=== PATIENT | female | born 1975 | race Caucasian/White ===

== ENCOUNTER 2016-06-22 21:07 | Emergency (ER) | payer SELFPAY ==
[2016-06-22 21:13] VITALS: TEMP 98.5; BMI 27.7
[2016-06-22] MEDS ORDERED: ATENOLOL 50 MG TAB PO ONE (22:10)
--- NOTE | 2016-06-22 22:13 | EDPRACDOC ---
- General Information Chief Complaint: Blood Pressure (Problems) Stated Complaint: ELEVATED BP BLURRED VISION HEART PALP Time Seen by Provider: 06/22/16 22:11 Information Source: Patient Mode Of Arrival: Car Home Medications: Home Medications Atenolol [Tenormin] 50 mg PO BID 06/30/15 CloNIDine (Antihypertensive) [Catapres] 0.1 mg PO DAILY 06/30/15 Atenolol [Tenormin] 50 mg PO BID #60 tablet 02/03/16 CloNIDine (Antihypertensive) [Catapres] 0.1 mg PO DAILY #30 tab 02/03/16 Magnesium [Magnesium Oxide] 200 mg PO DAILY #30 tablet 02/03/16 POTASSIUM CHLORIDE Tablet [K-DUR 20 mEq Tablet*] 20 meq PO DAILY #10 tab Atenolol [Tenormin] 50 mg PO BID(ANIRUDH) #60 tablet 06/22/16 CloNIDine (Antihypertensive) [Catapres] 0.1 mg PO BID PRN #30 tab 06/22/16 Allergies/Adverse Reactions: Allergies Allergy/AdvReac Type Severity Reaction Status Date / Time Iodinated Contrast Media - Allergy Hives* Verified 02/03/16 14:18 IV Dye Penicillins Allergy Hives* Verified 02/03/16 14:18 - History of Present 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 She owes her PCP money and can not go back to that clinic until she pays her bill. She plans to go back when she gets her tax returns. today has PATEL and can tell that her BP is high. She is here requesting me refill. no CP, SOB, weakness, numbness, change in vision or speech. No change in UOP. She had recent blood work with PCP/ declines repeat labs now, reports that is why her medical bill was high. Symptoms: Reports: Mild Circumstances: Reports: Ran Out of Medication Relevent History of: Reports: Hypertension Hypertension Treatment: Reports: Noncompliant Recent Use of: Denies: Cocaine Associated Signs and Symptoms: Denies: Chest Pain, Palpitations, Shortness of Breath, Abdominal Pain, Hematuria ED Past Medical History - History Reviewed Yes Nurses notes reviewed and agree except as marked - Patient Medical History Cardiac History: Reports: Hypertension Respiratory History: Reports: Asthma Psychological History: Reports: Depression, Anxiety Systemic History: Denies: Cancer Additional Past Medical History: EXPOSED TO SEVERAL TOXIC CHEMICAL WHILE LIVING ON BASE AT [facility] Surgical History: Reports: Tonsillectomy/Adnoidectomy. Denies: Hysterectomy - Social Medical History Smoking Status: Current some day smoker EDM Review of Systems - Review of Systems ROS Negative Except as Marked: Yes All systems reviewed and were negative except as marked - Physical Exam Constitutional: Alert (Awake), No apparent distress Oriented to: Time, Person, Place Last recorded Vital Signs: Last Vital Signs Temp 98.5 F 06/22/16 21:10 Pulse 55 L 06/22/16 21:50 Resp 20 06/22/16 21:50 BP 213/101 H 06/22/16 21:50 Pulse Ox 97 06/22/16 21:50 Oxygen Pulse Oxygen Saturation 97 O2 Device Room Air Oxygen Flow Rate Fraction of Inspired Oxygen ( FIO2) - HEENT Head: Normal ( normocephalic) Eye Exam: Normal (PERRL, EOMI, Sclera white) Oropharynx: Normal (Pharynx:Moist without exudate,Gums-no swelling) Neck: Normal (FROM, trachea at midline) - Respiratory/Cardiovascular Respiratory: Normal - CTA (BBS clear to auscultation without adventitious sounds ) Cardiovascular: Normal (RRR without murmur, gallop or rub) - GI Auscultation: Normal (NABS) Palpation: Normal (Soft,No rebound or guarding, non distended) Tenderness: Non tender Cody's Sign: Negative - Musculoskeletal Back: Normal (Non-Tender) Extremities: Normal (Normal tone, Pulses 2+ No cyanosis or edema, FROM). negative: Calf Tenderness - Integumentary Skin: Normal, Warm, Dry Lymphatics: Normal (no adenopathy) - Neurologic Memory Impaired: Normal Motor Function: Normal (Normal tone, Pulses 2+ No cyanosis or edema, FROM) Cranial Nerve: Normal (CN II-X11 intact sensation, strength 5/5) Cerebellar: Normal Mood Description: Normal Perception: Normal - Re-evaluation Re-evaluation 1 Re-evaluation Time: 23:34 (BP improved with home medications. Pt feeling beter and would like to be discharged. Plan Rx Clonidine and Atenolol and f/u PCP. She agrees to return precautions. ) Decision Time to Discharge: 23:35 - Departure Yes I personally saw and evaluated the patient. Disposition: Home Condition: Improved Final Diagnosis: HTN (hypertension) Instructions: Chronic Hypertension (ED) Education/Counseling Given To: Patient Education/Counseling Given Regarding: Diagnosis, Follow Up Referrals: Joseline Fernandez MD [Primary Care Provider] - One Week Prescriptions: New Atenolol [Tenormin] 50 mg PO BID(ANIRUDH) #60 tablet CloNIDine (Antihypertensive) [Catapres] 0.1 mg PO BID PRN #30 tab PRN Reason: TOP BLOOD PRESSURE # OVER 180 No Action CloNIDine (Antihypertensive) [Catapres] 0.1 mg PO DAILY Atenolol [Tenormin] 50 mg PO BID CloNIDine (Antihypertensive) [Catapres] 0.1 mg PO DAILY #30 tab POTASSIUM CHLORIDE Tablet [K-DUR 20 mEq Tablet*] 20 meq PO DAILY #10 tab Magnesium [Magnesium Oxide] 200 mg PO DAILY #30 tablet Atenolol [Tenormin] 50 mg PO BID #60 tablet
[2016-06-22] MEDS ORDERED: ACETAMINOPHEN 325 MG/TAB TABLET PO ONE (23:08)
[2016-06-22 23:33] VITALS: BP 173/91; PULSE 56
== END 2016-06-22 23:52 | disposition home or self-care (01) ==
LOC: ED 21:07
DX: I10 Essential (primary) hypertension (principal)
CPT/HCPCS: 99283; J3490